=== PATIENT | male | born 1980 | race Caucasian/White ===

== ENCOUNTER 2017-03-14 01:51 | Emergency (ER) | payer SELFPAY ==
[~2017-03-14] VITALS: Ht 167.6 cm; Wt 94.8 kg
[2017-03-14 01:58] VITALS: BP 125/83
== END 2017-03-14 03:16 | disposition left against medical advice (07) ==
LOC: ED 03:10
DX: M25.572 Pain in left ankle and joints of left foot (principal); Z53.21 Procedure and treatment not carried out due to patient leaving prior to being seen by health care provider